=== PATIENT | male | born 1995 | race Caucasian/White ===

== ENCOUNTER 2017-09-23 07:32 | Emergency (ER) | payer OTHER ==
[2017-09-23] MEDS ORDERED: DEXAMETHASONE 10 MG/ML VIAL IVP STA (07:47)
[2017-09-23] MEDS ORDERED: KETOROLAC 60 MG/2 ML VIAL IVP STA (07:47)
[2017-09-23] MEDS ORDERED: SODIUM CHLORIDE 0.9% 1,000 ML IV ONE (07:47)
[2017-09-23] MEDS ORDERED: PROCHLORPERAZINE 10 MG/2 ML VIAL IVP STA (07:48)
[2017-09-23] MEDS ORDERED: diphenhydrAMINE INJ 50 MG/ML VIAL IVP STA (07:51)
--- NOTE | 2017-09-23 07:54 | ED Physician Documentation ---
PD HPI HEADACHE - Stated complaint Stated Complaint: MIGRAINE - Chief complaint Chief Complaint: Neuro - History obtained from History obtained from: Patient, Family - History of Present Illness Timing - onset: Yesterday Timing - onset during: Rest Timing - duration: Days (1) Timing - details: Abrupt onset, Still present Worst headache ever?: No: Worst headache ever? Location: Global Quality: Throbbing Associated symptoms: Nausea, Vomiting. No: Fever, Stiff neck, Weakness, Numbness, Syncope, Seizure Improved by: Rest, Dark room, Quiet Worsened by: Light, Noise, Moving Contributing factors: No: Anticoagulated Similar symptoms before: Diagnosis (migraine) Recently seen: Not recently seen - Additional information Additional information: 22-year-old male with a history of migraine headaches with a frequency of 2-3 times per month has developed a migraine yesterday that is been resistant to treatment. He awoke this morning with vomiting. He states that he rarely has a aura and that with this headache he has had a lot of light sensitivity. Review of Systems Constitutional: denies: Fever Eyes: denies: Decreased vision Ears: denies: Ear pain Nose: denies: Rhinorrhea / runny nose, Congestion Throat: denies: Sore throat Cardiac: denies: Chest pain / pressure, Palpitations Respiratory: denies: Dyspnea, Cough GI: reports: Nausea, Vomiting. denies: Abdominal Pain : denies: Dysuria, Frequency Skin: denies: Rash Musculoskeletal: denies: Neck pain, Back pain, Extremity pain Neurologic: reports: Headache. denies: Generalized weakness, Focal weakness, Numbness, Head injury, LOC PD PAST MEDICAL HISTORY - Past Medical History Past Medical History: Yes Neuro: Headache/migraine Other Past Medical History: bilateral club foot - Past Surgical History Past Surgical History: Yes HEENT: Rhinoplasty - Present Medications Home Medications: Ambulatory Orders Medication Instructions Recorded Confirmed No Known Home Medications [No 09/23/17 09/23/17 Known Home Medications] - Allergies Allergies/Adverse Reactions: Allergies Allergy/AdvReac Type Severity Reaction Status Date / Time No Known Drug Allergies Allergy Verified 09/23/17 07:46 - Social History Does the pt smoke?: No Smoking Status: Never smoker Does the pt drink ETOH?: No Does the pt have substance abuse?: Yes Substance Use and Type: Marijuana - Immunizations Immunizations are current?: No PD ED PE NORMAL - Vitals Vital signs reviewed: Yes (Hypertensive mild) - General General: Alert and oriented X 3, No acute distress, Well developed/nourished - HEENT HEENT: Atraumatic, PERRL, EOMI, Ears normal, Moist mucous membranes, Pharynx benign, Dentition benign - Neck Neck: Supple, no meningeal sign, No bony TTP - Cardiac Cardiac: RRR, No murmur - Respiratory Respiratory: No respiratory distress, Clear bilaterally - Abdomen Abdomen: Soft, Non tender - Back Back: No CVA TTP, No spinal TTP - Derm Derm: Normal color, Warm and dry, No rash - Extremities Extremities: No deformity, No edema - Neuro Neuro: No motor deficit, No sensory deficit - Psych Psych: Normal mood, Normal affect Results - Vitals Vitals: Vital Signs - 24 hr 09/23/17 09/23/17 07:40 09:28 Temperature 36.5 C Heart Rate 74 85 Respiratory 16 15 Rate Blood Pressure 116/83 H 126/56 L O2 Saturation 100 100 Oxygen O2 Source Room air PD MEDICAL DECISION MAKING - ED course Complexity details: considered differential, d/w patient ED course: 22-year-old male with history of migraine headaches has headaches 2-3 times per month and is having headache now that is been resistant. He has had vomiting this morning only. He is administered a cocktail consisting of a liter of saline 10 mg Compazine 25 mg of Benadryl Benadryl 30 mg of Toradol and 10 mg of dexamethasone. He has complete headache resolution. Departure - Departure Disposition: 01 Home, Self Care Clinical Impression: Migraine Qualifiers: Migraine type: without aura Status migrainosus presence: without status migrainosus Intractability: not intractable Qualified Code(s): G43.009 - Migraine without aura, not intractable, without status migrainosus Condition: Stable Instructions: ED Headache Migraine Follow-Up: Your, doctor [Other] Discharge Date/Time: 09/23/17 09:30
[2017-09-23] MEDS ORDERED: KETOROLAC 30 MG/ML VIAL ONE (08:13)
[2017-09-23] MEDS ORDERED: DEXAMETHASONE 10 MG/ML VIAL ONE (08:13)
[2017-09-23] MEDS ORDERED: PROCHLORPERAZINE 10 MG/2 ML VIAL ONE (08:13)
[2017-09-23] MEDS ORDERED: diphenhydrAMINE INJ 50 MG/ML VIAL ONE (08:13)
[2017-09-23 09:29] VITALS: BP 126/56
== END 2017-09-23 09:30 | disposition home or self-care (01) ==
LOC: ED 07:32
DX: G43.009 Migraine without aura, not intractable, without status migrainosus (principal)
CPT/HCPCS: 96361; 96374; 96375; 99284

== ENCOUNTER 2017-09-28 18:37 | Emergency (ER) | payer OTHER ==
[2017-09-28] MEDS ORDERED: SODIUM CHLORIDE 0.9% 1,000 ML IV ONE (18:51)
[2017-09-28] MEDS ORDERED: diphenhydrAMINE INJ 50 MG/ML VIAL IVP STA (18:52)
[2017-09-28] MEDS ORDERED: DEXAMETHASONE 10 MG/ML VIAL IVP STA (18:52)
[2017-09-28] MEDS ORDERED: KETOROLAC 30 MG/ML VIAL IVP STA (18:52)
[2017-09-28] MEDS ORDERED: HALOPERIDOL 5 MG/ML VIAL IVP ONE (18:52)
--- NOTE | 2017-09-28 18:56 | ED Physician Documentation ---
PD HPI HEADACHE - Stated complaint Stated Complaint: MIGRAINE - Chief complaint Chief Complaint: Neuro - History obtained from History obtained from: Patient, Friend - History of Present Illness Timing - onset: Other (22-year-old with migraine headaches as long as he can remember, usually several times a month. The location varies. Today it is a right retro-orbital headache associated with nausea, vomiting, and lites sensitivity. He is vomited several times. He does not have anything to take at home for these.) Review of Systems Constitutional: denies: Fever, Chills Nose: denies: Rhinorrhea / runny nose, Congestion Throat: denies: Sore throat GI: reports: Nausea, Vomiting. denies: Abdominal Pain PD PAST MEDICAL HISTORY - Past Medical History Neuro: Headache/migraine - Past Surgical History Past Surgical History: Yes HEENT: Rhinoplasty - Present Medications Home Medications: Ambulatory Orders Medication Instructions Recorded Confirmed Ondansetron HCl [Zofran] 4 mg PO .FREQ 09/28/17 09/28/17 SUMAtriptan [Imitrex] 25 mg PO BID PRN #10 tablet 09/28/17 - Allergies Allergies/Adverse Reactions: Allergies Allergy/AdvReac Type Severity Reaction Status Date / Time No Known Drug Allergies Allergy Verified 09/28/17 18:41 - Social History Does the pt smoke?: No Smoking Status: Never smoker Does the pt drink ETOH?: No Does the pt have substance abuse?: Yes - Immunizations Immunizations are current?: No PD ED PE NORMAL - Vitals Vital signs reviewed: Yes - General General: Alert and oriented X 3, Other (Light sensitive) - HEENT HEENT: PERRL, EOMI - Neck Neck: Supple, no meningeal sign, No bony TTP - Neuro Neuro: Alert and oriented X 3, scroll assembler 2-12 intact, No motor deficit, No sensory deficit, Normal speech - Psych Psych: Normal mood Results - Vitals Vitals: Vital Signs - 24 hr 09/28/17 18:39 Temperature 36.4 C L Heart Rate 64 Respiratory 16 Rate Blood Pressure 117/73 O2 Saturation 99 Oxygen O2 Source Room air PD MEDICAL DECISION MAKING - ED course ED course: The headache is gradual in onset and similar to prior headaches. As such I doubt subarachnoid hemorrhage. There are no infectious symptoms such as fever or stiff neck to make me suspect meningitis. No carbon monoxide exposure by history. That said he has never had cranial imaging, we discussed doing cranial imaging by CT tonight but he preferred to get an MRI as an outpatient which does seem more appropriate. Last time he was here he was administered Compazine which he had a lot of akathisia. Instead of that tonight he was administered Haldol, Benadryl, Toradol, dexamethasone. On recheck at 7:49 PM his headache had gone away. Departure - Departure Disposition: Home, Self Care Clinical Impression: Migraine Qualifiers: Migraine type: without aura Status migrainosus presence: with status migrainosus Intractability: not intractable Qualified Code(s): G43.001 - Migraine without aura, not intractable, with status migrainosus Condition: Stable Record reviewed to determine appropriate education?: Yes Instructions: ED Headache Migraine Follow-Up: Treasure Lopez MD [Provider Admit Priv/Credential] - Salo Soria MD [Provider Admit Priv/Credential] - [facility] [Provider Group] [facility] [Provider Group] Prescriptions: SUMAtriptan [Imitrex] 25 mg PO BID PRN #10 tablet PRN Reason: Headache Comments: As discussed call your [place] insurance tomorrow to see if there are any local primary care providers that take your insurance. A few local physicians and offices are listed on this form that you can try as well.
[2017-09-28] MEDS ORDERED: HALOPERIDOL 5 MG/ML VIAL ONE (19:15)
[2017-09-28] MEDS ORDERED: diphenhydrAMINE INJ 50 MG/ML VIAL ONE (19:15)
[2017-09-28] MEDS ORDERED: KETOROLAC 30 MG/ML VIAL ONE (19:16)
[2017-09-28] MEDS ORDERED: DEXAMETHASONE 10 MG/ML VIAL ONE (19:16)
[2017-09-28 20:17] VITALS: BP 118/78
== END 2017-09-28 20:13 | disposition home or self-care (01) ==
LOC: ED 18:37
DX: G43.001 Migraine without aura, not intractable, with status migrainosus (principal)
CPT/HCPCS: 96361; 96374; 96375; 99283; 99284